=== PATIENT | female | born 1940 | race Caucasian/White ===

== ENCOUNTER 2018-02-11 16:22 | Outpatient (REF) | payer MEDICARE, SELFPAY ==
[2018-02-11 21:17] LABS: Abs Immature Grans 0.02 k/cumm (0.0-0.09); Absolute Basophil Count 0.01 k/cumm (0.0-0.2); Absolute Eosinophil Count 0.22 k/cumm (0.0-0.7); Absolute Lymphocyte Count 1.49 k/cumm (1.2-3.4); Absolute Monocyte Count 0.64 k/cumm (0.11-0.7); Absolute Neutrophil Count 4.79 k/cumm (1.2-6.7); Basophils % 0.1; Eosinophils % 3.1; HGB 12.1 g/dL (12.0-15.5); Immature Grans % 0.3; Lymphocytes % 20.8; Mean Corp. HGB Concentration 31.8 g/dL (32.0-36.0); Mean Corpuscular Hemoglobin 27.8 pg (27.0-33.0); Mean Corpuscular Volume 87.2 fL (80-95); Mean Platelet Volume 11.1 fL (8.0-11.0); Monocytes % 8.9; Neutrophils % 66.8; Platelet Count 285 x1000/uL (130-400); RBC 4.36 m/cumm (4.00-5.20); White Blood Cell Count 7.17 k/cumm (4.4-10.8)
[2018-02-11 21:59] LABS: ALT 25 U/L (12-78); AST 11 U/L (15-37); Albumin 3.4 g/dL (3.4-5.0); Alkaline Phosphatase 144 U/L (46-116); Anion Gap 12.8 mmol/L (3-11); BUN 13 mg/dL (7-18); Bilirubin, Total 0.2 mg/dL (0.2-1.0); CO2 25.2 mmol/L (21.0-32.0); CREATININE 0.99 mg/dL (0.55-1.02); Chloride 105 mmol/L (98-107); Estimated GFR 54.54 (mL/min/1.73m2); Glucose 149 mg/dL (70-100); Potassium 3.4 mmol/L (3.5-5.1); Sodium 143 mmol/L (136-145); TSH 1.31 uIU/mL (0.358-3.74); Total Protein 6.6 g/dL (6.4-8.2); Vitamin B12 339 pg/mL (193-986)
== END 2018-02-11 16:42 ==
LOC: NCHCN 16:22
PROVIDERS: PCP Family Medicine; Visit Provider Registered Nurse
DX: R41.0 Disorientation, unspecified (principal)
CPT/HCPCS: 80053; 82607; 84443; 85025

== ENCOUNTER 2018-02-16 08:48 | Outpatient (REF) | payer MEDICARE, SELFPAY ==
[2018-02-16 22:45] LABS: ALT 22 U/L (12-78); AST 19 U/L (15-37); Albumin 3.3 g/dL (3.4-5.0); Alkaline Phosphatase 150 U/L (46-116); Anion Gap 9.5 mmol/L (3-11); BUN 10 mg/dL (7-18); Bilirubin, Total 0.4 mg/dL (0.2-1.0); CO2 29.5 mmol/L (21.0-32.0); CREATININE 0.75 mg/dL (0.55-1.02); Calcium 8.5 mg/dL (8.5-10.1); Chloride 104 mmol/L (98-107); Glucose 87 mg/dL (70-100); Potassium 4.2 mmol/L (3.5-5.1); Sodium 143 mmol/L (136-145); Total Protein 6.7 g/dL (6.4-8.2)
[2018-02-17 16:24] LABS: GGT 21 U/L (5-55)
== END 2018-02-16 09:08 ==
LOC: NCHCN 08:48
PROVIDERS: PCP Family Medicine; Visit Provider Registered Nurse
DX: R74.8 Abnormal levels of other serum enzymes (principal)
CPT/HCPCS: 80053; 82977

== ENCOUNTER 2020-08-21 12:42 | Outpatient (REF) | payer MEDICARE, SELFPAY ==
[2020-08-21 21:35] LABS: ALT 33 U/L (14-59); AST 20 U/L (15-37); Albumin 3.6 g/dL (3.4-5.0); Alkaline Phosphatase 111 U/L (46-116); BUN 16 mg/dL (7-18); Bilirubin, Total 0.2 mg/dL (0.2-1.0); CREATININE 0.9 mg/dL (0.55-1.02); Calcium 8.5 mg/dL (8.5-10.1); Chloride 106 mmol/L (98-107); Glucose 82 mg/dL (74-106); Sodium 142 mmol/L (136-145); Total Protein 6.7 g/dL (6.4-8.2)
[2020-08-21 21:47] LABS: COMMENT (LAB VIEW ONLY) 14.09 mg/dL; Microalb ug/mg Crea 22.7 ug/mg Cr
== END 2020-08-21 12:43 | disposition home or self-care (01) ==
LOC: NCHCN 12:42
PROVIDERS: PCP Family Medicine; Visit Provider Nurse Practitioner Family
DX: I10 Essential (primary) hypertension (principal); R10.13 Epigastric pain
CPT/HCPCS: 80053; 82043; 82570

== ENCOUNTER 2020-09-10 17:49 | Outpatient (REF) | payer MEDICARE, SELFPAY ==
[2020-09-10 22:21] LABS: Hemoglobin A1C 5.7 % (<5.7)
[2020-09-10 22:23] LABS: TSH (W/Ref FT4) 1.34 uIU/mL (0.36-3.74)
== END 2020-09-10 17:50 | disposition home or self-care (01) ==
LOC: NCHCN 17:49
PROVIDERS: PCP Family Medicine; Visit Provider Nurse Practitioner Community Health
DX: I10 Essential (primary) hypertension (principal); R73.9 Hyperglycemia, unspecified; R11.2 Nausea with vomiting, unspecified
CPT/HCPCS: 83036; 84443

== ENCOUNTER 2020-11-21 12:46 | Outpatient (REF) | payer MEDICARE, SELFPAY ==
[2020-11-21 21:45] LABS: HCT 28.8 % (36.0-46.0); HGB 9.2 g/dL (11.2-15.7); MCHC 31.9 % (32.0-36.0); MCV 87.5 fL (80-95); MPV 10.4 fL (8.0-11.0); Platelet Count 414 10^3/uL (130-400); RBC 3.29 10^6/uL (3.93-5.22); RDW 13.2 % (11.7-14.6); RDW-SD 42.8 fL
[2020-11-21 22:22] LABS: ALT 28 U/L (14-59); AST 18 U/L (15-37); Albumin 3.5 g/dL (3.4-5.0); Alkaline Phosphatase 125 U/L (46-116); Anion Gap 9.5 mmol/L (3-11); BUN 11 mg/dL (7-18); Bilirubin, Total 0.3 mg/dL (0.2-1.0); CO2 27.5 mmol/L (21.0-32.0); Calcium 8.8 mg/dL (8.5-10.1); Chloride 104 mmol/L (98-107); Estimated GFR 53.48 (mL/min/1.73m2); Glucose 92 mg/dL (74-106); Lipase 56 U/L (73-393); Potassium 3.8 mmol/L (3.5-5.1); Sodium 141 mmol/L (136-145); Total Protein 6.7 g/dL (6.4-8.2)
[2020-11-21 22:35] LABS: Cholesterol 202 mg/dL (<200); Triglyceride 95 mg/dL (<150)
[2020-11-21 22:46] LABS: Calculated LDL 113 mg/dL (<100); HDL Cholesterol 70 mg/dL (40-60)
[2020-11-22 09:12] LABS: Reticulocyte 1.7 % (0.5-2.4)
[2020-11-22 10:14] LABS: Ferritin 9 ng/mL (8-252)
[2020-11-23 09:11] LABS: Folate >24.0 ng/mL (See Note)
[2020-11-23 11:49] LABS: COVID-19 RT-PCR UVMMC Result Negative (Negative)
[2020-11-23 21:27] LABS: Vitamin B12 469 pg/mL (193-986)
== END 2020-11-21 12:47 | disposition home or self-care (01) ==
LOC: NCHCN 12:46
PROVIDERS: PCP Family Medicine; Visit Provider Nurse Practitioner Family
DX: Z13.220 Encounter for screening for lipoid disorders (principal); D64.9 Anemia, unspecified; R11.0 Nausea; R10.13 Epigastric pain; R10.32 Left lower quadrant pain; J06.9 Acute upper respiratory infection, unspecified; Z20.822 Contact with and (suspected) exposure to COVID-19
CPT/HCPCS: 80053; 80061; 83690; 85027; U0003; 82607; 82728; 82746; 85045

== ENCOUNTER 2021-03-11 15:09 | Outpatient (REF) | payer MEDICARE, SELFPAY ==
[2021-03-11 21:53] LABS: Abs Immature Grans 0.02 10^3/uL (0.0-0.06); Absolute Basophil Count 0.03 10^3/uL (0.0-0.2); Absolute Eosinophil Count 0.17 10^3/uL (0.0-0.7); Absolute Lymphocyte Count 1.86 10^3/uL (1.2-3.4); Absolute Monocyte Count 0.71 10^3/uL (0.1-0.8); Absolute Neutrophil Count 4.53 10^3/uL (1.2-6.7); Basophils % 0.4; Eosinophils % 2.3; HGB 8.2 g/dL (11.2-15.7); Immature Grans % 0.3; Iron 14 ug/dL (50-170); Lymphocytes % 25.4; MCH 19.8 pg (27.0-33.0); MCHC 29.3 % (32.0-36.0); MCV 67.6 fL (80-95); MPV 10.3 fL (8.0-11.0); Monocytes % 9.7; Neutrophils % 61.9; Nucleated RBC 0 %; Platelet Count 368 10^3/uL (130-400); RBC 4.14 10^6/uL (3.93-5.22); RDW 18.6 % (11.7-14.6); Total Iron Binding Capacity 527 ug/dL (250-450); Transferrin Sat 3 % (15-50); WBC 7.32 10^3/uL (4.4-10.8)
[2021-03-11 22:08] LABS: Ferritin 5 ng/mL (8-252)
[2021-03-11 22:42] LABS: Anisocytosis 1+; Diff Comment RBC Morph Reviewed; Hypochromasia 2+; Microcytosis 2+
== END 2021-03-11 15:10 | disposition home or self-care (01) ==
LOC: NCHCN 15:09
PROVIDERS: PCP Family Medicine; Visit Provider Internal Medicine
DX: D64.9 Anemia, unspecified (principal)
CPT/HCPCS: 82728; 83540; 83550; 85025

== ENCOUNTER 2021-06-19 21:16 | Outpatient (REF) | payer MEDICARE, SELFPAY ==
[2021-06-19 21:27] LABS: HCT 36.5 % (36.0-46.0); HGB 11.3 g/dL (11.2-15.7); MCH 24.3 pg (27.0-33.0); MCV 78.5 fL (80-95); MPV 10.7 fL (8.0-11.0); Platelet Count 276 10^3/uL (130-400); RBC 4.65 10^6/uL (3.93-5.22); RDW 22.5 % (11.7-14.6); RDW-SD 63.1 fL; WBC 6.98 10^3/uL (4.4-10.8)
[2021-06-19 22:07] LABS: Ferritin 16 ng/mL (8-252)
[2021-06-20 00:18] LABS: Vitamin D 25 Total 29.9 ng/mL (30-100)
== END 2021-06-19 21:17 | disposition home or self-care (01) ==
LOC: LBN 21:16
PROVIDERS: PCP Family Medicine; Visit Provider Internal Medicine
DX: S22.000A Wedge compression fracture of unspecified thoracic vertebra, initial encounter for closed fracture (principal); R53.83 Other fatigue; Z79.899 Other long term (current) drug therapy; D64.9 Anemia, unspecified
CPT/HCPCS: 82306; 85027; 82728

== ENCOUNTER 2021-10-03 20:28 | Outpatient (REF) | payer MEDICARE, SELFPAY ==
[2021-10-03 21:11] LABS: HCT 36.5 % (36.0-46.0); HGB 11.7 g/dL (11.2-15.7); MCH 28.2 pg (27.0-33.0); MCHC 32.1 % (32.0-36.0); MCV 88 fL (80-95); MPV 11.3 fL (8.0-11.0); Platelet Count 289 10^3/uL (130-400); RBC 4.15 10^6/uL (3.93-5.22); RDW 14.9 % (11.7-14.6); RDW-SD 48.1 fL; WBC 7.98 10^3/uL (4.4-10.8)
[2021-10-03 21:47] LABS: ALT 22 U/L (14-59); AST 23 U/L (15-37); Albumin 3.6 g/dL (3.4-5.0); Alkaline Phosphatase 138 U/L (46-116); Anion Gap 10.9 mmol/L (3-11); BUN 12 mg/dL (7-18); Bilirubin, Total 0.3 mg/dL (0.2-1.0); CO2 25.1 mmol/L (21.0-32.0); CREATININE 0.9 mg/dL (0.55-1.02); Calcium 8.3 mg/dL (8.5-10.1); Chloride 108 mmol/L (98-107); Ferritin 18 ng/mL (8-252); Glucose 117 mg/dL (74-106); Potassium 3.4 mmol/L (3.5-5.1); Sodium 144 mmol/L (136-145); Total Protein 6.6 g/dL (6.4-8.2)
[2021-10-03 21:58] LABS: Vitamin D 25 Total 30.6 ng/mL (30-100)
== END 2021-10-03 20:29 | disposition home or self-care (01) ==
LOC: NCHCN 20:28
PROVIDERS: PCP Family Medicine; Visit Provider Internal Medicine
DX: D50.9 Iron deficiency anemia, unspecified (principal); N84.0 Polyp of corpus uteri; I10 Essential (primary) hypertension; Z87.828 Personal history of other (healed) physical injury and trauma
CPT/HCPCS: 80053; 82306; 85027; 82728

== ENCOUNTER 2022-04-04 15:53 | Outpatient (REF) | payer MEDICARE, MEDICAID, SELFPAY ==
[2022-04-04 21:08] LABS: HCT 38.6 % (36.0-46.0); HGB 12.1 g/dL (11.2-15.7); MCH 27.8 pg (27.0-33.0); MCHC 31.3 % (32.0-36.0); MCV 89 fL (80-95); MPV 11.4 fL (8.0-11.0); Platelet Count 272 10^3/uL (130-400); RBC 4.36 10^6/uL (3.93-5.22); RDW 13.4 % (11.7-14.6); WBC 6.32 10^3/uL (4.4-10.8)
[2022-04-04 21:30] LABS: Anion Gap 4.9 mmol/L (3-11); BUN 12 mg/dL (7-18); CO2 31.1 mmol/L (21.0-32.0); CREATININE 0.9 mg/dL (0.55-1.02); Calcium 8.7 mg/dL (8.5-10.1); Chloride 105 mmol/L (98-107); Estimated GFR 64.63 (mL/min/1.73m2); Ferritin 32 ng/mL (8-252); Glucose 97 mg/dL (74-106); Potassium 3.9 mmol/L (3.5-5.1); Sodium 141 mmol/L (136-145)
== END 2022-04-04 15:54 | disposition home or self-care (01) ==
LOC: NCHCN 15:53
PROVIDERS: PCP Family Medicine; Visit Provider Internal Medicine
DX: D50.9 Iron deficiency anemia, unspecified (principal); I10 Essential (primary) hypertension
CPT/HCPCS: 80048; 85027; 82728

== ENCOUNTER 2023-01-07 17:28 | Outpatient (REF) | payer MEDICARE, SELFPAY ==
--- OUTSIDE RECORDS SUMMARY | 2023-01-07 17:32 | XMS_ITS | CCD ---
Author Name Unknown Address [address] [place] [address] [id number] Organization Unknown Address [address] [place] [address] [phone] Care Team Providers Care Implementation Analyst Name Role Phone HARRISON GARCIA Attending Physician [phone] JENIFER LE Er Physician 2 [phone] NATASHA Hoover Registered Nurse [phone] Vital Signs Vital Sign Value Unit Date/Time Recent/Initial ? BMI (Body Mass Index) 37.02 kg/m^2 05/25/2021 13: 30 Initial VS Weight Measured 209 lbs 05/25/2021 13:30 Ini tial VS Height 63 in 05/25/2021 13:30 Initial VS BSA (Body Surface Area) 2.05 m^2 05/25/2021 1 3:30 Initial VS BP Systolic 179 mmHg 05/25/2021 13:30 Initial VS BP Diastolic 100 mmHg 05/25/2021 13:30 Initia l VS Respiratory Rate 17 bpm 05/25/2021 13:30 In itial VS Heart Rate 78 bpm 05/25/2021 13:30 Initial VS O2 % BldC Oximetry 100 % 05/25/2021 13:30 Initial VS Body Temperature 36.2 degrees 05/25/2021 13:30 In itial VS Allergies Allergy Code Allergy Type Reaction Status ANESTHESIA {Clinical monitoring unavailable} 0 Dr ug allergy UNKNOWN Active AUGMENTIN [id number] Drug allergy Active PROGESTERONE 8727 Drug allergy Active CHEERIOS {Clinical monitoring unavailable} 0 Drug allergy UNKNOWN Active BENZOCAINE {Clinical monitoring unavailable} 0 Dr ug allergy Hives Active VALIUM {Clinical monitoring unavailable} 0 Drug a llergy Agitation Active Procedures Unknown or Not Available. History of Immunizations Unknown or Not Available. Problems Problem Code Start Date Resolved Date Status GERD [id number] 05/25/2021 Resolved HTN [id number] 05/25/2021 Resolved Results Unknown or Not Available. Active Medications Unknown or Not Available. Medications Administered During Visit Unknown or Not Available. Encounters Encounter Diagnosis Diagnosis Code Start Date Paresthesia of skin R202 05/25/2021 Social History Smoking Status Code Start Date End Date Former smoker 6559170 Patient Decision Aids Unknown or Not Available. Discharge Instructions You were admitted to [facility] on 05/25/2021 12:51 with a principal diagnosis of Paresthesia of skin You were discharged from [facility] on 05/25/2021 14:38 Should you have any questions prior to discharge, please contact a member of your healthcare team. If you have left the hospital and have any questions, please contact your primary care physician. Chief Complaint and Reason For Visit Chief Complaint Date of Onset RIGHT WRIST ISSUE Function Status Unknown or Not Available. Plan of Care Unknown or Not Available. Referral/Transition of Care Unknown or Not Available.
--- OUTSIDE RECORDS SUMMARY | 2023-01-07 17:32 | XMS_ITS | CCD ---
Author Name Unknown Address [address] [place] [address] [phone] Organization Unknown Address [address] [place] [address] [id number] Care Team Providers Care Cds Sales Advisor Name Role Phone NATALIE REYNALDO R Attending Physician [phone] Vital Signs Unknown or Not Available. Allergies Allergy Code Allergy Type Reaction Status ANESTHESIA {Clinical monitoring unavailable} 0 Dr ug allergy UNKNOWN Active AUGMENTIN 896643 Drug allergy Active PROGESTERONE 8727 Drug allergy Active CHEERIOS {Clinical monitoring unavailable} 0 Drug allergy UNKNOWN Active BENZOCAINE {Clinical monitoring unavailable} 0 Dr ug allergy Hives Active VALIUM {Clinical monitoring unavailable} 0 Drug a llergy Agitation Active Procedures Unknown or Not Available. History of Immunizations Unknown or Not Available. Problems Unknown or Not Available. Results Unknown or Not Available. Active Medications Unknown or Not Available. Medications Administered During Visit Unknown or Not Available. Encounters Encounter Diagnosis Diagnosis Code Start Date Polyp of corpus uteri N840 07/01/2021 Social History Smoking Status Code Start Date End Date Former smoker 7853768 Patient Decision Aids Unknown or Not Available. Discharge Instructions You were admitted to [facility] on 07/01/2021 12:39 with a principal diagnosis of Polyp of corpus uteri You were discharged from [facility] on 07/01/2021 12:39 Should you have any questions prior to discharge, please contact a member of your healthcare team. If you have left the hospital and have any questions, please contact your primary care physician. Chief Complaint and Reason For Visit Chief Complaint Date of Onset VAGINAL BLEEDING Function Status Unknown or Not Available. Plan of Care Unknown or Not Available. Referral/Transition of Care Unknown or Not Available.
--- OUTSIDE RECORDS SUMMARY | 2023-01-07 17:32 | XMS_ITS | CCD ---
Author Name Unknown Address [address] [place] [address] [phone] Organization Unknown Address [address] [place] [address] [phone] Care Team Providers Care Home Supervisor Name Role Phone NATALIE REYNALDO R Attending Physician [phone] Vital Signs Unknown or Not Available. Allergies Allergy Code Allergy Type Reaction Status ANESTHESIA {Clinical monitoring unavailable} 0 Dr ug allergy UNKNOWN Active AUGMENTIN 987736 Drug allergy Active PROGESTERONE 8727 Drug allergy [...] Encounters Encounter Diagnosis Diagnosis Code Start Date Screening for osteoporosis [id number] 07/23 Social History Smoking Status Code Start Date End Date Former smoker 1315360 Patient Decision Aids Unknown or Not Available. Discharge Instructions You were admitted to [facility] on 07/23/2021 14:49 with a principal diagnosis of Encounter for screening for osteoporosis You were discharged from [facility] on 07/23/2021 14:49 Should you have any questions prior to discharge, please contact a member of your healthcare team. If you have left the hospital and have any questions, please contact your primary care physician. Chief Complaint and Reason For Visit Chief Complaint Date of Onset POSTMENOPAUSAL Function Status Unknown or Not Available. Plan of Care Unknown or Not Available. Referral/Transition of Care Unknown or Not Available.
--- OUTSIDE RECORDS SUMMARY | 2023-01-07 17:32 | XMS_ITS | CCD ---
Author Name Unknown Address [address] [place] [address] [id number] Organization Unknown Address [address] [place] [address] [phone] Care Team Providers Care Pharmacy Technician Per Diem Name Role Phone NATALIEREYNALDO Areli Attending Physician [phone] Vital Signs Unknown or Not Available. Allergies Allergy Code Allergy Type Reaction Status ANESTHESIA {Clinical monitoring unavailable} 0 Dr ug allergy UNKNOWN Active CHEERIOS {Clinical monitoring unavailable} 0 Drug allergy UNKNOWN Active BENZOCAINE {Clinical monitoring unavailable} 0 Dr ug allergy Hives Active VALIUM {Clinical monitoring unavailable} 0 Drug a llergy Agitation Active Procedures Unknown or Not Available. History of Immunizations Unknown or Not Available. Problems Problem Code Start Date Resolved Date Status GERD [id number] 05/25/2021 Resolved HTN 04196433 05/25/2021 Resolved Results Unknown or Not Available. Active Medications Unknown or Not Available. Medications Administered During Visit Unknown or Not Available. Encounters Encounter Diagnosis Diagnosis Code Start Date Wedge compression fracture o f unspecified thoracic vertebra, initial encounter for closed fracture [id number] 2020 Social History Smoking Status Code Start Date End Date Former smoker 3252185 Patient Decision Aids Unknown or Not Available. Discharge Instructions You were admitted to on 03/13/2021 10:35 with a principal diagnosis of Wedge compression fracture of unspecified thoracic vertebra, initial encounter for closed fracture You were discharged from on 03/13/2021 10:35 Should you have any questions prior to discharge, please contact a member of your healthcare team. If you have left the hospital and have any questions, please contact your primary care physician. Chief Complaint and Reason For Visit Chief Complaint Date of Onset TSPINE Function Status Unknown or Not Available. Plan of Care Unknown or Not Available. Referral/Transition of Care Unknown or Not Available.
--- OUTSIDE RECORDS SUMMARY | 2023-01-07 17:33 | XMS_ITS | CCD ---
Author Name Unknown Address [address] [place] [address] [phone] Organization Unknown Address [address] [place] [address] [phone] Care Team Providers Care Mechanical Design Drafter Name Role Phone MARCE, MCKAANDRIA Flores Attending Physician [phone] Vital Signs Unknown or Not Available. Allergies Allergy Code Allergy Type Reaction Status ANESTHESIA {Clinical monitoring unavailable} 0 Dr ug allergy UNKNOWN Active AUGMENTIN 003829 Drug allergy Active PROGESTERONE 8727 Drug allergy Active CHEERIOS {Clinical monitoring unavailable} 0 Drug allergy UNKNOWN Active BENZOCAINE {Clinical monitoring unavailable} 0 Dr ug allergy Hives Active VALIUM {Clinical monitoring unavailable} 0 Drug a llergy Agitation Active Procedures Unknown or Not Available. History of Immunizations Unknown or Not Available. Problems Unknown or Not Available. Results COMPREHENSIVE METABOLIC PANE L (CMP) - Collect Date/Time: 10/30/2021 10:51 Test Name Code Test Result Test Units Test Ref Rang e GLUCOSE 2345-7 90 mg/dL L=70 H=116 BUN 3094-0 16 mg/dL L=6 H=25 CREATININE 2160-0 0.91 mg/dL L=0.51 H=0.95 SODIUM SERUM 2951-2 144 mmol/L L=136 H=145 POTASSIUM SERUM 2823-3 4.2 mmol/L L=3.4 H=5 .2 CHLORIDE SERUM 2075-0 105 mmol/L L=96 H=110 CARBON DIOXIDE (CO2) 2028-9 30 mmol/L L=22 H=34 ANION GAP 97318-8 8.8 mmol/L CALCIUM SERUM 92169-1 8.9 mg/dL L=8.2 H=10. 2 BILIRUBIN TOTAL 1975-2 0.3 mg/dL L=0.0 H=1 .3 ALK. PHOS. 6768-6 142 U/L L=46 H=116 SGOT (AST) 1920-8 20 U/L L=15 H=37 SGPT (ALT) 1742-6 23 U/L L=12 H=78 TOTAL PROTEIN 2885-2 6.9 gm/dL L=6.0 H=8.0 ALBUMIN 1751-7 3.8 gm/dL L=3.4 H=5.0 AGE 81 years eGFR (non-Afr.Amer.) 70467-0 59 mL/min eGFR (Afr-Tristanian) 16585-2 72 mL/min CBC W/ DIFFERENTIAL* - Colle ct Date/Time: 10/30/2021 10:51 Test Name Code Test Result Test Units Test Ref Rang e WBC 6690-2 7.93 th/cmm L=5.00 H=10.00 NEUT % 65.5 % L=40.0 H=80.0 LYMPH % 23.2 % L=10.0 H=50.0 MONO % 33966-4 7.7 % L=2.0 H=12.0 EOS % 3.0 % L=0.0 H=8.0 BASO % 0.5 % L=0.0 H=3.0 IG % 2514-8 0.1 % L=0.0 H=1.1 NRBC % 17429-9 0.0 % L=0.0 H=0.0 NEUT abs count 751-8 5.2 th/cmm L=1.6 H=8. 4 LYMPH abs count 731-0 1.8 th/cmm L=1.5 H=4 .0 MONO abs count 742-7 0.6 th/cmm L=0.2 H=1. 0 EOS abs count 711-2 0.2 th/cmm L=0.0 H=0.5 BASO abs count 704-7 0.0 th/cmm L=0.0 H=0. 2 IG abs count 50534-7 0.0 th/cmm L=0.0 H=0.1 NRBC abs count 26221-0 0.0 mil/cmm L=0.0 H=0. 0 RBC 789-8 4.47 mil/cmm L=3.90 H=5.40 HEMOGLOBIN 718-7 12.8 gm/dL L=12.0 H=16.0 HEMATOCRIT 4544-3 39 % L=37 H=47 MCV 787-2 87 fL L=82 H=92 MCH 785-6 28.6 pg L=27.0 H=31.0 MCHC 786-4 33.0 % L=32.0 H=36.0 RDW-SD 788-0 45.7 fL L=39.0 H=49.0 PLATELET COUNT 777-3 276 th/cmm L=150 H=45 0 Active Medications Unknown or Not Available. Medications Administered During Visit Unknown or Not Available. Encounters Encounter Diagnosis Diagnosis Code Start Date Diarrhea [id number] 10/30/2021 Social History Smoking Status Code Start Date End Date Former smoker 5010588 Patient Decision Aids Unknown or Not Available. Discharge Instructions You were admitted to [facility] on 10/30/2021 10:33 with a principal diagnosis of Diarrhea, unspecified You had the following tests done:CBC W/ DIFFERENTIAL*COMPREHENSIVE METABOLIC PANEL (CMP) You were discharged from [facility] on 10/30/2021 10:33 Should you have any questions prior to discharge, please contact a member of your healthcare team. If you have left the hospital and have any questions, please contact your primary care physician. Chief Complaint and Reason For Visit Unknown or Not Available. Function Status Unknown or Not Available. Plan of Care Unknown or Not Available. Referral/Transition of Care Unknown or Not Available.
--- OUTSIDE RECORDS SUMMARY | 2023-01-07 17:33 | XMS_ITS | CCD ---
Author Name Unknown Address [address] [place] [address] [phone] Organization Unknown Address [address] [place] [address] [phone] Care Team Providers Care Math Instructor Name Role Phone CHEO ZHENGANDRIA Mark Attending Physician [phone] Vital Signs Unknown or Not Available. Allergies Allergy Code Allergy Type Reaction Status ANESTHESIA {Clinical monitoring unavailable} 0 Dr ug allergy UNKNOWN Active AUGMENTIN 392820 Drug allergy Active PROGESTERONE 8727 Drug allergy Active CHEERIOS {Clinical monitoring unavailable} 0 Drug allergy UNKNOWN Active BENZOCAINE {Clinical monitoring unavailable} 0 Dr ug allergy Hives Active VALIUM {Clinical monitoring unavailable} 0 Drug a llergy Agitation Active Procedures Unknown or Not Available. History of Immunizations Unknown or Not Available. Problems Unknown or Not Available. Results CLOSTRIDIUM DIFFICILE BY PCR * - Collect Date/Time: 10/18/2021 08:45 Test Name Code Test Result Test Units Test Ref Rang e Consistency = 81926-0 LOOSE/SOFT N/A C. DIFFICILE DNA 23041-2 NEGATIVE N/A Normal: Negative Active Medications Unknown or Not Available. Medications Administered During Visit Unknown or Not Available. Encounters Encounter Diagnosis Diagnosis Code Start Date Diarrhea [id number] 10/18/2021 Social History Smoking Status Code Start Date End Date Former smoker 5245430 Patient Decision Aids Unknown or Not Available. Discharge Instructions You were admitted to [facility] on 10/18/2021 13:11 with a principal diagnosis of Diarrhea, unspecified You had the following tests done:CLOSTRIDIUM DIFFICILE BY PCR* You were discharged from [facility] on 10/18/2021 13:11 Should you have any questions prior to [...]
--- OUTSIDE RECORDS SUMMARY | 2023-01-07 17:33 | XMS_ITS | CCD ---
Author Name Unknown Address [address] [place] [address] [id number] Organization Unknown Address [address] [place] [address] [phone] Care Team Providers Care Medical Typist Name Role Phone DEVEN MCGEE Attending Physician [phone] MARIFER SKELTON Er Physician 1 [phone] TRACE Hdz Registered Nurse [phone] Vital Signs Vital Sign Value Unit Date/Time Recent/Initial ? BP Systolic 149 mmHg 08/29/2021 16:10 Initial VS BP Diastolic 82 mmHg 08/29/2021 16:10 Initia l VS Respiratory Rate 18 bpm 08/29/2021 16:10 In itial VS Heart Rate 80 bpm 08/29/2021 16:10 Initial VS O2 % BldC Oximetry 99 % 08/29/2021 16:10 Initial VS Body Temperature 36.1 degrees 08/29/2021 16:10 In itial VS Allergies Allergy Code Allergy Type Reaction Status ANESTHESIA {Clinical monitoring unavailable} 0 Dr ug allergy UNKNOWN Active AUGMENTIN 213007 Drug allergy Active PROGESTERONE 8727 Drug allergy [...] Encounters Encounter Diagnosis Diagnosis Code Start Date Superficial foreign body of other part of head, initial encounter [id number] 08/29/2021 Social History Smoking Status Code Start Date End Date Former smoker 8072062 Patient Decision Aids Unknown or Not Available. Discharge Instructions You were admitted to [facility] on 08/29/2021 15:18 with a principal diagnosis of Superficial foreign body of other part of head, initial encounter You were discharged from [facility] on 08/29/2021 17:05 Should you have any questions prior to discharge, please contact a member of your healthcare team. If you have left the hospital and have any questions, please contact your primary care physician. Chief Complaint and Reason For Visit Chief Complaint Date of Onset HEAD LACERATION Function Status Unknown or Not Available. Plan of Care Unknown or Not Available. Referral/Transition of Care Unknown or Not Available.
--- OUTSIDE RECORDS SUMMARY | 2023-01-07 17:33 | XMS_ITS | CCD ---
Author Name Unknown Address [address] [place] [address] [id number] Organization Unknown Address [address] [place] [address] [phone] Care Team Providers Care Supervisor Framing Mill Name Role Phone REYNALDO ESTRADA Areli Attending Physician [phone] Vital Signs Unknown or Not Available. Allergies Allergy Code Allergy Type Reaction Status ANESTHESIA {Clinical monitoring unavailable} 0 Dr ug allergy UNKNOWN Active AUGMENTIN 532010 Drug allergy Active PROGESTERONE 8727 Drug allergy Active CHEERIOS {Clinical monitoring unavailable} 0 Drug allergy UNKNOWN Active BENZOCAINE {Clinical monitoring unavailable} 0 Dr ug allergy Hives Active VALIUM {Clinical monitoring unavailable} 0 Drug a llergy Agitation Active Procedures Unknown or Not Available. History of Immunizations Unknown or Not Available. Problems Unknown or Not Available. Results CLOSTRIDIUM DIFFICILE BY PCR * - Collect Date/Time: 10/31/2021 12:26 Test Name Code Test Result Test Units Test Ref Rang e Consistency = 68038-9 LOOSE/SOFT N/A C. DIFFICILE DNA 54395-6 NEGATIVE N/A Normal: Negative LACTOFERRIN DETECTION STOOL - Collect Date/Time: 10/31/2021 12:26 Test Name Code Test Result Test Units Test Ref Rang e Consistency: LOOSE/SOFT N/A Lactoferrin stool NEGATIVE N/A OCCULT BLOOD STOOL 1 SCR NON -NEOPLASM* - Collect Date/Time: 10/31/2021 12:26 Test Name Code Test Result Test Units Test Ref Rang e OCCULT BLD,STOOL 2335-8 NEGATIVE N/A FECAL BACTERIAL PATHOGENS BY PCR - Collect Date/Time: 10/31/2021 12:26 Test Name Code Test Result Test Units Test Ref Rang e Salmonella PCR Negative N/A Negative Shigella PCR Negative N/A Negative Campylobacter PCR Negative N/A Negativ e Shiga Toxin PCR Negative N/A Negative Active Medications Unknown or Not Available. Medications Administered During Visit Unknown or Not Available. Encounters Encounter Diagnosis Diagnosis Code Start Date Diarrhea [id number] 10/31/2021 Social History Smoking Status Code Start Date End Date Former smoker 7673864 Patient Decision Aids Unknown or Not Available. Discharge Instructions You were admitted to [facility] on 10/31/2021 11:53 with a principal diagnosis of Diarrhea, unspecified You had the following tests done:CLOSTRIDIUM DIFFICILE BY PCR*FECAL BACTERIAL PATHOGENS BY PCRLACTOFERRIN DETECTION STOOLOCCULT BLOOD STOOL 1 SCR NON- NEOPLASM* You were discharged from [facility] on 10/31/2021 11:53 Should you have any questions prior to [...]
[2023-01-07 21:19] LABS: HCT 37.9 % (36.0-46.0); HGB 12.2 g/dL (11.2-15.7); MCH 27.7 pg (27.0-33.0); MCHC 32.2 % (32.0-36.0); MCV 86 fL (80-95); MPV 11.2 fL (8.0-11.0); Platelet Count 265 10^3/uL (130-400); RBC 4.41 10^6/uL (3.93-5.22); RDW 13.5 % (11.7-14.6); RDW-SD 42.8 fL; WBC 6.84 10^3/uL (4.4-10.8)
[2023-01-07 22:02] LABS: ALT 24 U/L (14-59); AST 26 U/L (15-37); Albumin 3.5 g/dL (3.4-5.0); Alkaline Phosphatase 116 U/L (46-116); Anion Gap 6.9 mmol/L (3-11); BUN 14 mg/dL (7-18); Bilirubin, Total 0.3 mg/dL (0.2-1.0); CO2 30.1 mmol/L (21.0-32.0); Calcium 8.7 mg/dL (8.5-10.1); Chloride 105 mmol/L (98-107); Ferritin 43 ng/mL (8-252); Glucose 88 mg/dL (74-106); Potassium 4.4 mmol/L (3.5-5.1); Sodium 142 mmol/L (136-145); Total Protein 6.9 g/dL (6.4-8.2)
== END 2023-01-07 17:29 | disposition home or self-care (01) ==
LOC: NCHCN 17:28
PROVIDERS: PCP Family Medicine; Visit Provider Internal Medicine
DX: D50.9 Iron deficiency anemia, unspecified (principal); K21.9 Gastro-esophageal reflux disease without esophagitis
CPT/HCPCS: 80053; 85027; 82728

== ENCOUNTER 2023-05-27 15:35 | Outpatient (REF) | payer MEDICARE, MEDICAID, SELFPAY ==
--- NOTE | 2023-05-27 14:30 | SKI_PTH ---
PATIENT: Zuleima Chau LOC: [facility] U#:[id number] AGE/SX: 82/F ROOM: RE05/27/[address]: Margi Adams : 1940 BED: DIS: 05/27/2023 SPEC #: [id number] RECD: 05/28/23 12:04 STATUS: KOBY REWaylon #: [id number] WALLY: 05/27/23 14:[address]: Margi Adams DEPT: Surgical Specimen RECD BY: Maxine Carey ENTERED: 05/28/23 12:04 SP TYPE: SKI OTHR DR: Joi Barney Tissues: 1 - SKIN BIOPSY(SHAVE/PUNCH) Procedures: IMMUNOPEROXIDASE STAIN SKIN LEVEL 4 Comments: [id number]
== END 2023-05-27 15:36 | disposition home or self-care (01) ==
LOC: NCHCN 15:35
PROVIDERS: PCP Family Medicine; Visit Provider Physician Assistant
DX: D22.5 Melanocytic nevi of trunk (principal)
CPT/HCPCS: 88305; 88361

== ENCOUNTER 2024-07-20 14:34 | Outpatient (REF) | payer MEDICARE, MEDICAID, SELFPAY ==
[2024-07-20 21:50] LABS: HCT 40.2 % (36.0-46.0); MCH 28.6 pg (27.0-33.0); MCHC 32.3 % (32.0-36.0); MCV 89 fL (80-95); MPV 10.9 fL (8.0-11.0); Platelet Count 256 10^3/uL (130-400); RBC 4.54 10^6/uL (3.93-5.22); RDW 13.8 % (11.7-14.6); RDW-SD 44.8 fL; WBC 6.91 10^3/uL (4.4-10.8)
[2024-07-20 22:08] LABS: Anion Gap 5.7 mmol/L (3-11); BUN 14 mg/dL (7-18); CO2 31.3 mmol/L (21.0-32.0); CREATININE 0.9 mg/dL (0.55-1.02); Calcium 8.8 mg/dL (8.5-10.1); Chloride 106 mmol/L (98-107); Estimated GFR 63.43 (mL/min/1.73m2); Glucose 103 mg/dL (74-106); Potassium 4.2 mmol/L (3.5-5.1); Sodium 143 mmol/L (136-145)
== END 2024-07-20 14:35 | disposition home or self-care (01) ==
LOC: NCHCN 14:34
PROVIDERS: PCP Family Medicine; Visit Provider Internal Medicine
DX: I10 Essential (primary) hypertension (principal)
CPT/HCPCS: 80048; 85027